=== PATIENT | female | born 1955 | race Caucasian/White ===

== ENCOUNTER 2020-08-24 16:48 | Emergency (ER) | payer MEDICARE, OTHER ==
[~2020-08-24] VITALS: Ht 162.6 cm; Wt 69.0 kg
--- NOTE | 2020-08-24 16:55 | ED Head Injury ---
General Stated Complaint: FELL,HEAD LAC Source: patient Exam Limitations: no limitations History of Present Illness Date Seen by Provider: Aug 24, 2020 Time Seen by Provider: 16:55 Initial Comments 64-year-old female presents following a fall. Patient did not lose consciousness. Patient has a large scalp hematoma with an laceration. Patient was wearing a hair clip and thinks when she fell hit the hairclip. Patient also states that she hit the corner of the wall but thinks it was her hairclip.. She has a moderate amount of bleeding over the laceration she did not lose consciousness. Patient just tripped and fell. She has no other injuries, no nausea vomiting other systemic complaints. Allergies and Home Medications Patient Home Medication List Home Medication List Reviewed: Yes Review of Systems Review of Systems Constitutional: No chills, No fever, No weakness Eyes: No Symptoms Reported Respiratory: No cough, No short of breath Cardiovascular: No chest pain, No palpitations Gastrointestinal: No abdominal pain, No nausea, No vomiting Genitourinary: no symptoms reported Musculoskeletal: no symptoms reported Skin: see HPI Psychiatric/Neurological: No Symptoms Reported Endocrine: No Symptoms Reported Past [place]osl-Nxygzo Hx Past Med/Social Hx: Reviewed Nursing Past Med/Soc Hx Patient Social History Recent Foreign Travel: No Contact w/Someone Who Travel: No Physical Exam Vital Signs Vital Signs - First Documented Capillary Refill : Height, Weight, BMI Height: '" Weight: lbs. oz. kg; BMI Method: General Appearance: WD/WN, no apparent distress HEENT: PERRL/EOMI, normal ENT inspection Neck: full range of motion, supple Cardiovascular: normal peripheral pulses, regular rate, rhythm Respiratory: lungs clear, normal breath sounds Gastrointestinal: non tender, soft; No distended Extremities: normal range of motion, non-tender Psychiatric: alert, oriented x 3 [place] Nerves: normal hearing, normal speech Coordination/Gait: normal gait Motor/Sensory: no motor deficit, no sensory deficit Skin: other (large hematoma with an approximate 4 cm laceration) Procedures/Interventions Wound Location: Scalp Wound Length (cm): 4.5 Wound's Depth, Shape: superficial, irregular, flap Wound Explored: clean Staple Repair: Stapler 35W Number of Sutures: 9 Sterile Dressing Applied?: Yes Patient had significant amount of bleeding, the bleeding improved and resolved following administration of the montrell. There was good approximation of the laceration. Progress/Results/Core Measures Results/Orders My Orders Orders - BERT HERNANDEZ DO Ct Head Wo (08/24/20 17:58) Vital Signs/I&O 08/24/20 08/24/20 16:48 16:48 Temp 36.5 36.5 Pulse 95 95 Resp 16 16 B/P (MAP) 182/123 (142) 182/123 (142) Pulse Ox 99 99 O2 Delivery Room Air Room Air Progress Progress Note : Time: 19:[address] shows no acute intracranial abnormality. Patient's laceration closed with montrell. Patient stable will be discharged home Diagnostic Imaging Diagonstic Imaging: CT Plain Films/CT/US/NM/MRI: head Comments [facility], [place] NAME: BRADLEY OLSON [facility] REC#: [id number] PT STATUS: REG ER : 1955 PHYSICIAN: BERT HERNANDEZ DO ADMIT DATE: 08/24/20/ER FS Draft Date of Exam:08/24/20 CT HEAD WO Clinical indication: Patient fell and hit back of head on corner of wall. Patient has 9 montrell. Exam: Axial CT scan of the brain without IV contrast with coronal and sagittal reformatted images. Auto Exposure Controls were utilized during the CT exam to meet ALARA standards for radiation dose reduction. Comparison: None. Findings: There is no evidence of acute cerebral infarct, intracranial hemorrhage, or gross mass effect. The brain parenchymal volume appears appropriate for patient's age. There is normal krishnamurthy-white matter distinction. There is no significant midline shift or herniation. There is no evidence of hydrocephalus. The basal cisterns are unremarkable. There is a moderate sized area of extracranial soft tissue swelling involving the right posterior aspect of the head with adjacent skin montrell. There is no skull fracture. Skull, extracranial soft tissue, and orbits are unremarkable. The paranasal sinuses are unremarkable. Temporal bones show no significant abnormality. Impression: 1: There is no evidence of acute intracranial process or intracranial hemorrhage. There is no skull fracture. Dictated on workstation # [id number] Departure Impression Primary Impression: Laceration of scalp without complication Qualified Codes: S01.01XA - Laceration without foreign body of scalp, initial encounter Additional Impressions: Fall Qualified Codes: W19.XXXA - Unspecified fall, initial encounter Scalp contusion Qualified Codes: S00.03XA - Contusion of scalp, initial encounter Disposition: 01 HOME, SELF-CARE Condition: Stable Departure-Patient Inst. Patient Instructions: Laceration Repair With [place] ([place]) Add. Discharge Instructions: Return to the ER in approximately 10-12 days for staple removal Do not showers emergent her head for 36-48 hours Remove bandage after 24 hours BERT HERNANDEZ DO Aug 24, 2020 16:55
--- NOTE | 2020-08-24 18:58 | Diagnostic Imaging Report ---
Clinical indication: Patient fell and hit back of head on corner of wall. Patient has 9 montrell. Exam: Axial CT scan of the brain without IV contrast with coronal and sagittal reformatted images. Auto Exposure Controls were utilized during the CT exam to meet ALARA standards for radiation dose reduction. Comparison: None. Findings: There is no evidence of acute cerebral infarct, intracranial hemorrhage, or gross mass effect. The brain parenchymal volume appears appropriate for patient's age. There is normal krishnamurthy-white matter distinction. There is no significant midline shift or herniation. There is no evidence of hydrocephalus. The basal cisterns are unremarkable. There is a moderate sized area of extracranial soft tissue swelling involving the right posterior aspect of the head with adjacent skin montrell. There is no skull fracture. Skull, extracranial soft tissue, and orbits are unremarkable. The paranasal sinuses are unremarkable. Temporal bones show no significant abnormality. Impression: 1: There is no evidence of acute intracranial process or intracranial hemorrhage. There is no skull fracture. Dictated by: Dictated on workstation # [id number]
--- NOTE | 2020-08-24 19:00 | NUR ---
Report to Luz ECHAVARRIA.
[2020-08-24 19:13] VITALS: BP 162/89
== END 2020-08-24 19:13 | disposition home or self-care (01) ==
LOC: EDUNIT# 16:48 → ER FS 16:49
DX: S01.01XA Laceration without foreign body of scalp, initial encounter (principal); W01.0XXA Fall on same level from slipping, tripping and stumbling without subsequent striking against object, initial encounter; W22.8XXA Striking against or struck by other objects, initial encounter
CPT/HCPCS: 70450